=== PATIENT | male | born 1980 | race American Indian/Alaskan Native ===

== ENCOUNTER 2018-06-10 10:34 | Emergency (ER) | payer OTHER ==
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
[2018-06-10 12:02] VITALS: BP 137/82; PULSE 67; RESP 18; TEMP 98.2; O2SAT 100
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
== END 2018-06-10 12:02 | disposition home or self-care (01) ==
LOC: ED 10:34
DX: S83.92XA Sprain of unspecified site of left knee, initial encounter (principal); S83.91XA Sprain of unspecified site of right knee, initial encounter; V13.4XXA Pedal cycle driver injured in collision with car, pick-up truck or van in traffic accident, initial encounter; Y92.410 Unspecified street and highway as the place of occurrence of the external cause